=== PATIENT | female | born 1955 | race Caucasian/White ===

== ENCOUNTER 2017-12-01 09:12 | Emergency (ER) | payer BC ==
[2017-12-01 09:23] VITALS: TEMP 98.1
[2017-12-01] MEDS ORDERED: SODIUM CHLORIDE 0.9% 1,000 ML IV STA (09:38)
--- NOTE | 2017-12-01 09:45 | ED ---
General Adult HPI - General Chief complaint: Recheck/Abnormal Lab/Rx Stated complaint: lightheaded, chest tightness Time Seen by Provider: 12/01/17 09:29 Source: patient, RN notes reviewed Mode of arrival: ambulatory Limitations: no limitations - History of Present Illness Initial comments: Patient is a 62-year-old female significant past medical history for whitecoat syndrome, presented to the emergency room today with a chief complaint possible reaction to Synthroid. She states she took 1 pill Friday and later that night began feeling some symptoms of palpitations and tightness in her chest and some nausea. She states she felt very anxious. Patient does admit that she's had similar symptoms in the past. Patient states she is to be on a thyroid medication approximately 30 years ago had similar symptoms. States at that time she used to take Ativan with it so she is unsure if it contracted some of the side effects. She states eventually they figure out she was ALLERGIC to it and told her that her thyroid levels were out that bad so they did not want to treat her. She states she recently was told that she needed this medication. She states she did advised that she had tried in the past but had some reactions. Patient does admit that the symptoms seem to be somewhat improved at this time. She denies any other complaints. Patient denies any recent fever , chills, shortness of breath, back pain, abdominal pain, vomiting, numbness or tingling, dysuria or hematuria, constipation or diarrhea, headaches or visual changes, or any other complaints. - Related Data Home Medications Medication Instructions Recorded Confirmed Levothyroxine Sodium [Synthroid] 100 mcg PO DAILY 12/01/17 12/01/17 Allergies Allergy/AdvReac Type Severity Reaction Status Date / Time acetaminophen Allergy Rash/Hives Verified 12/01/17 10:31 [From Darvocet-N 100] adhesive tape Allergy Rash/Hives Verified 12/01/17 10:31 alprazolam [From Xanax] Allergy Rash/Hives Verified 12/01/17 10:31 Anesthetics - Amide Type Allergy Rash/Hives Verified 12/01/17 10:31 ciprofloxacin [From Cipro] Allergy Rash/Hives Verified 12/01/17 10:31 codeine Allergy Rash/Hives Verified 12/01/17 10:31 dicyclomine [From Bentyl] Allergy Unknown Verified 12/01/17 10:31 estradiol [From Vivelle] Allergy Rash/Hives Verified 12/01/17 10:31 estrogens, conjugated Allergy Rash/Hives Verified 12/01/17 10:31 [From Cenestin] fluoxetine [From Prozac] Allergy Rash/Hives Verified 12/01/17 10:31 latex Allergy Rash/Hives Verified 12/01/17 10:31 levofloxacin [From Levaquin] Allergy Rash/Hives Verified 12/01/17 10:31 levothyroxine sodium Allergy Rash/Hives Verified 12/01/17 10:31 [From Synthroid] lidocaine Allergy Rash/Hives Verified 12/01/17 10:31 morphine Allergy Rash/Hives Verified 12/01/17 10:31 omeprazole [From Prilosec] Allergy Unknown Verified 12/01/17 10:31 ondansetron Allergy Unknown Verified 12/01/17 10:31 [From Zofran (as hydrochloride)] phenazopyridine Allergy Rash/Hives Verified 12/01/17 10:31 propoxyphene Allergy Rash/Hives Verified 12/01/17 10:31 [From Darvocet-N 100] thyroid, pork AdvReac LIGHTHEADED, Verified 12/01/17 10:31 [From [place] Thyroid] BP ISSUES Review of Systems ROS Statement: Those systems with pertinent positive or pertinent negative responses have been documented in the HPI. ROS Other: All systems not noted in ROS Statement are negative. Past Medical History Past Medical History: Thyroid Disorder History of Any Multi-Drug Resistant Organisms: None Reported Past Surgical History: Appendectomy, Hysterectomy, Tubal Ligation Additional Past Surgical History / Comment(s): oral Past Psychological History: Anxiety Smoking Status: Never smoker Past Alcohol Use History: None Reported Past Drug Use History: None Reported General Exam - General Exam Comments Initial Comments: General: The patient is awake and alert, in no distress, and does not appear acutely ill. Eye: Pupils are equal, round and reactive to light, extra-ocular movements are intact. No nystagmus. There is normal conjunctiva bilaterally. No signs of icterus. Ears, nose, mouth and throat: There are moist mucous membranes and no oral lesions. Neck: The neck is supple, there is no tenderness or JVD. Cardiovascular: There is a regular rate and rhythm. No murmur, rub or gallop is appreciated. Respiratory: Lungs are clear to auscultation, respirations are non-labored, breath sounds are equal. No wheezes, stridor, rales, or rhonchi. Gastrointestinal: Soft, non-distended, non-tender abdomen without masses or organomegaly noted. There is no rebound or guarding present. No CVA tenderness. Bowel sounds are unremarkable. Musculoskeletal: Normal ROM, no tenderness. Strength 5/5. Sensation intact. Pulses equal bilaterally 2+. Neurological: A&O x 3. CN II-XII intact, There are no obvious motor or sensory deficits. Coordination appears grossly intact. Speech is normal. Skin: Skin is warm and dry and no rashes or lesions are noted. Psychiatric: Cooperative, appropriate mood & affect, normal judgment. Limitations: no limitations Course Vital Signs 12/01/17 12/01/17 12/01/17 09:16 10:03 11:10 Temperature 98.1 F Pulse Rate 84 74 77 Respiratory 18 20 18 Rate Blood Pressure 212/94 199/92 199/79 O2 Sat by Pulse 99 97 100 Oximetry 12/01/17 11:32 Temperature Pulse Rate 70 Respiratory 18 Rate Blood Pressure 179/84 O2 Sat by Pulse 99 Oximetry - Reevaluation(s) Reevaluation #1: 12/01/17 09:44 EKG performed at 0940: Shows normal sinus rhythm at 76 beats per minute. DC interval 144. QRS 94 QT/QTC 3-4/432. No acute ST changes. Patient's initial blood pressure elevated at triage. She states she does not take any medications for hypertension. She admits that she has or cold syndrome. Her blood pressure will be continued be monitored. Medical Decision Making - Medical Decision Making Patient reexamined at this time shows no signs of distress. Patient states she had similar symptoms in the past when she took [place] Thyroid. She states the symptoms are consistent strength one dose. She states that she has not taken the last 2 days symptoms are improving. At this time patient's labs been reviewed. Case discussed with attending physician Dr. Gottlieb. Patient will be discharged home to follow-up with her family physician. Advised to hold her Synthroid at this time until she follows up. - Lab Data Result diagrams: 12/01/17 09:55 12/01/17 09:55 Lab Results 12/01/17 12/01/17 12/01/17 Range/Units 09:55 09:55 09:55 WBC 5.0 (3.8-10.6) k/uL RBC 5.11 (3.80-5.40) m/uL Hgb 14.1 (11.4-16.0) gm/dL Hct 44.1 (34.0-46.0) % MCV 86.3 (80.0-100.0) fL MCH 27.6 (25.0-35.0) pg MCHC 31.9 (31.0-37.0) g/dL RDW 13.7 (11.5-15.5) % Plt Count 448 (150-450) k/uL Neutrophils % 70 % Lymphocytes % 21 % Monocytes % 6 % Eosinophils % 1 % Basophils % 0 % Neutrophils # 3.5 (1.3-7.7) k/uL Lymphocytes # 1.1 (1.0-4.8) k/uL Monocytes # 0.3 (0-1.0) k/uL Eosinophils # 0.0 (0-0.7) k/uL Basophils # 0.0 (0-0.2) k/uL PT (9.0-12.0) sec INR (<1.2) APTT (22.0-30.0) sec Sodium 146 H (137-145) mmol/L Potassium 4.8 (3.5-5.1) mmol/L Chloride 109 H (98-107) mmol/L Carbon Dioxide 19 L (22-30) mmol/L Anion Gap 18 mmol/L BUN 8 (7-17) mg/dL Creatinine 0.80 (0.52-1.04) mg/dL Est GFR (CKD-EPI)AfAm >90 (>60 ml/min/1.73 sqM) Est GFR (CKD-EPI)NonAf 79 (>60 ml/min/1.73 sqM) Glucose 111 H (74-99) mg/dL Calcium 10.3 H (8.4-10.2) mg/dL Total Bilirubin 0.8 (0.2-1.3) mg/dL AST 31 (14-36) U/L ALT 23 (9-52) U/L Alkaline Phosphatase 93 (38-126) U/L Total Creatine Kinase 81 (30-135) U/L CK-MB (CK-2) 0.5 (0.0-2.4) ng/mL CK-MB (CK-2) Rel Index 0.6 Troponin I <0.012 (0.000-0.034) ng/mL Total Protein 8.9 H (6.3-8.2) g/dL Albumin 4.6 (3.5-5.0) g/dL TSH 13.700 H (0.465-4.680) mIU/L Free T4 0.77 L (0.78-2.19) ng/dL Urine Color Urine Appearance (Clear) Urine pH (5.0-8.0) Ur Specific [place] (1.001-1.035) Urine Protein (Negative) Urine Glucose (UA) (Negative) Urine Ketones (Negative) Urine Blood (Negative) Urine Nitrite (Negative) Urine Bilirubin (Negative) Urine Urobilinogen (<2.0) mg/dL Ur Leukocyte Esterase (Negative) 12/01/17 12/01/17 Range/Units 09:55 11:05 WBC (3.8-10.6) k/uL RBC (3.80-5.40) m/uL Hgb (11.4-16.0) gm/dL Hct (34.0-46.0) % MCV (80.0-100.0) fL MCH (25.0-35.0) pg MCHC (31.0-37.0) g/dL RDW (11.5-15.5) % Plt Count (150-450) k/uL Neutrophils % % Lymphocytes % % Monocytes % % Eosinophils % % Basophils % % Neutrophils # (1.3-7.7) k/uL Lymphocytes # (1.0-4.8) k/uL Monocytes # (0-1.0) k/uL Eosinophils # (0-0.7) k/uL Basophils # (0-0.2) k/uL PT 9.9 (9.0-12.0) sec INR 1.0 (<1.2) APTT 24.3 (22.0-30.0) sec Sodium (137-145) mmol/L Potassium (3.5-5.1) mmol/L Chloride (98-107) mmol/L Carbon Dioxide (22-30) mmol/L Anion Gap mmol/L BUN (7-17) mg/dL Creatinine (0.52-1.04) mg/dL Est GFR (CKD-EPI)AfAm (>60 ml/min/1.73 sqM) Est GFR (CKD-EPI)NonAf (>60 ml/min/1.73 sqM) Glucose (74-99) mg/dL Calcium (8.4-10.2) mg/dL Total Bilirubin (0.2-1.3) mg/dL AST (14-36) U/L ALT (9-52) U/L Alkaline Phosphatase (38-126) U/L Total Creatine Kinase (30-135) U/L CK-MB (CK-2) (0.0-2.4) ng/mL CK-MB (CK-2) Rel Index Troponin I (0.000-0.034) ng/mL Total Protein (6.3-8.2) g/dL Albumin (3.5-5.0) g/dL TSH (0.465-4.680) mIU/L Free T4 (0.78-2.19) ng/dL Urine Color Light Yellow Urine Appearance Clear (Clear) Urine pH 5.5 (5.0-8.0) Ur Specific [place] 1.006 (1.001-1.035) Urine Protein Negative (Negative) Urine Glucose (UA) Negative (Negative) Urine Ketones 1+ H (Negative) Urine Blood Negative (Negative) Urine Nitrite Negative (Negative) Urine Bilirubin Negative (Negative) Urine Urobilinogen <2.0 (<2.0) mg/dL Ur Leukocyte Esterase Negative (Negative) Disposition Clinical Impression: Adverse reaction to drug Disposition: HOME SELF-CARE Condition: Good Instructions: Hypothyroidism (ED) Additional Instructions: Please follow-up with family physician over the next 2 days. Please return here to the emergency room for any symptoms increase or worsen or for any other concerns. Referrals: Arron Correia DO [Primary Care Provider] - 1-2 days Time of Disposition: 12:42
[2017-12-01 10:13] LABS: Basophils % (A) 0 %; Eosinophils % (A) 1 %; HCT 44.1 % (34.0-46.0); HGB 14.1 gm/dL (11.4-16.0); Lymphocytes # (A) 1.1 k/uL (1.0-4.8); Lymphocytes % (A) 21 %; MCH 27.6 pg (25.0-35.0); MCHC 31.9 g/dL (31.0-37.0); MCV 86.3 fL (80.0-100.0); Mean Platelet Volume 7.2; Monocytes # (A) 0.3 k/uL (0-1.0); Monocytes % (A) 6 %; Neutrophils # (A) 3.5 k/uL (1.3-7.7); Neutrophils % (A) 70 %; Platelet Count 448 k/uL (150-450); RBC 5.11 m/uL (3.80-5.40); RDW 13.7 % (11.5-15.5)
--- NOTE | 2017-12-01 10:14 | XR ---
EXAMINATION TYPE: XR chest 2V DATE OF EXAM: 12/01/2017 COMPARISON: NONE TECHNIQUE: PA and lateral views submitted. HISTORY: Pain FINDINGS: The lungs are clear and there is no pneumothorax, pleural effusion, or focal pneumonia. Atheroscler otic change of the aorta. Hypertrophic and degenerative changes spine. Biapical pleural thickening. S ubsegmental changes along the left lung base. IMPRESSION: 1. Nonspecific subsegmental changes along the left lung base. May been the basis of atelectasis. Pepito y infiltrate not excluded follow-up to resolution suggested..
[2017-12-01 10:22] LABS: Partial Thromboplastin Time 24.3 sec (22.0-30.0); Prothrombin Time 9.9 sec (9.0-12.0)
[2017-12-01 10:39] LABS: Creatine Kinase 81 U/L (30-135)
[2017-12-01 10:52] LABS: Creatine Kinase MB 0.5 ng/mL (0.0-2.4); Troponin I <0.012 ng/mL (0.000-0.034)
[2017-12-01 11:15] VITALS: RESP 18
[2017-12-01 11:18] LABS: Appearance,Urine Clear (Clear); Bilirubin,Urine Negative (Negative); Blood,Urine Negative (Negative); Color,Urine Light Yellow; Glucose,Urine (UA) Negative (Negative); Ketones,Urine 1+ (Negative); Leukocyte Esterase,Urine Negative (Negative); Nitrite,Urine Negative (Negative); PH, Urine 5.5 (5.0-8.0); Protein,Urine Negative (Negative); Specific Gravity,Urine 1.006 (1.001-1.035); Urobilinogen,Urine <2.0 mg/dL (<2.0)
[2017-12-01 11:33] VITALS: BP 179/84; PULSE 70
[2017-12-01 11:44] LABS: ALT 23 U/L (9-52); AST 31 U/L (14-36); Albumin 4.6 g/dL (3.5-5.0); Alkaline Phosphatase 93 U/L (38-126); Anion Gap 18 mmol/L; Blood Urea Nitrogen 8 mg/dL (7-17); Calcium 10.3 mg/dL (8.4-10.2); Carbon Dioxide 19 mmol/L (22-30); Chloride 109 mmol/L (98-107); Glucose 111 mg/dL (74-99); Potassium 4.8 mmol/L (3.5-5.1); Sodium 146 mmol/L (137-145); Total Bilirubin 0.8 mg/dL (0.2-1.3); Total Protein 8.9 g/dL (6.3-8.2)
[2017-12-01 12:00] LABS: T4, Free (Free Thyroxine) 0.77 ng/dL (0.78-2.19)
[2017-12-02 13:28] LABS: C. trachomatis,PCR Negative (Neg,Equiv); Chlamydia trachomatis Source Urine; N. gonorrhoeae,PCR Negative (Neg,Equiv); Neisseria Source Urine
== END 2017-12-01 12:58 | disposition home or self-care (01) ==
LOC: EC 09:12
DX: R00.2 Palpitations (principal); R07.89 Other chest pain; R42 Dizziness and giddiness; T38.1X5A Adverse effect of thyroid hormones and substitutes, initial encounter; E07.9 Disorder of thyroid, unspecified; Z88.1 Allergy status to other antibiotic agents; Z88.4 Allergy status to anesthetic agent; Z88.5 Allergy status to narcotic agent; Z88.8 Allergy status to other drugs, medicaments and biological substances; Z91.040 Latex allergy status; Z91.048 Other nonmedicinal substance allergy status; Z79.899 Other long term (current) drug therapy
CPT/HCPCS: 36415; 71046; 80053; 81003; 82550; 82553; 84439; 84443; 84484; 85025; 85610; 85730; 87491; 87591; 93005; 96360; 99285

== ENCOUNTER → 2018-01-05 | Outpatient (CLI) | payer BC | END | disposition home or self-care (01) | LOC: LABWHC1 14:46 | PROVIDERS: ATTEND Internal Medicine Endocrinology, Diabetes & Metabolism | DX: E03.8 Other specified hypothyroidism (principal) | CPT/HCPCS: 36415; 84443 ==

== ENCOUNTER → 2018-03-09 | Outpatient (CLI) | payer BC ==
[2018-03-09 09:01] LABS: Albumin 4.2 g/dL (3.5-5.0); Calcium 9.8 mg/dL (8.4-10.2); Total Bilirubin 0.5 mg/dL (0.2-1.3); Total Protein 7.6 g/dL (6.3-8.2)
[2018-03-09 09:03] LABS: Basophils % (A) 0 %; Eosinophils # (A) 0.1 k/uL (0-0.7); Eosinophils % (A) 3 %; HCT 43.5 % (34.0-46.0); HGB 13.8 gm/dL (11.4-16.0); Lymphocytes # (A) 1.5 k/uL (1.0-4.8); Lymphocytes % (A) 33 %; MCH 27.8 pg (25.0-35.0); MCHC 31.7 g/dL (31.0-37.0); MCV 87.8 fL (80.0-100.0); Mean Platelet Volume 6.6; Monocytes # (A) 0.5 k/uL (0-1.0); Monocytes % (A) 10 %; Neutrophils # (A) 2.4 k/uL (1.3-7.7); Neutrophils % (A) 52 %; Platelet Count 442 k/uL (150-450); RBC 4.96 m/uL (3.80-5.40); RDW 13.8 % (11.5-15.5); WBC 4.7 k/uL (3.8-10.6)
== END | disposition home or self-care (01) ==
LOC: LABWHC1 07:49
PROVIDERS: ATTEND Internal Medicine Endocrinology, Diabetes & Metabolism
DX: Z00.00 Encounter for general adult medical examination without abnormal findings (principal); E66.9 Obesity, unspecified; R03.0 Elevated blood-pressure reading, without diagnosis of hypertension; E03.9 Hypothyroidism, unspecified
CPT/HCPCS: 36415; 80053; 80061; 84443; 85025

== ENCOUNTER → 2018-04-06 | Outpatient (CLI) | payer BC ==
--- NOTE | 2018-04-06 18:42 | BD ---
EXAMINATION TYPE: Axial Bone Density DATE OF EXAM: 04/06/2018 COMPARISON: 02/24/2002 CLINICAL HISTORY: 62-year-old female osteoporosis, postmenopausal screening Height: 53.7 IN Weight: 196 LBS RISK FACTORS HISTORY OF: Active: YES Postmenopausal woman: AGE 46 Take estrogen and/or progesterone medications: NOT NOW How long: AGE 47-50 MEDICATIONS: Thyroid Medications: Which medication: TIROSINT How Lon MONTHS Additional Medications: TIROSINT, EXAM MEASUREMENTS: Bone mineral densitometry was performed using the [employer] System. Bone mineral density as measured about the Lumbar spine is: ----- L1-L4(G/cm2): 1.353 T Score Values are as follows: ----- L2: 1.0 ----- L3: 1.5 ----- L4: 1.9 ----- L1-L4: 1.4 Bone mineral density has: Decreased -11.5% since study of: 02/24/2002 Bone mineral density about the R hip (g/cm2): 0.903 Bone mineral density about the L hip (g/cm2): 0.921 T Score values are as follows: -----R Neck: -1.0 -----L Neck: -0.8 -----R Total: -0.1 -----L Total: 0.1 Bone mineral density has: Decreased -4.6% since study of: 02/24/2002 IMPRESSION: Normal (Values between +1 and -1 indicate normal bone mass). Note that measurements border on osteop enia at the right hip. Consider repeating this study in 5 years or sooner if there is some new clinical indication. NOTE: T-SCORE=SD OF THE YOUNG ADULT MEAN.
--- NOTE | 2018-04-08 13:35 | MM ---
Reason for exam: screening (asymptomatic). Last mammogram was performed 13 years ago. History: Patient is postmenopausal and is nulliparous. Took estrogen for 3 years. Physical Findings: A clinical breast exam by your physician is recommended on an annual basis and results should be correlated with mammographic findings. MG Screening Mammo w CAD Bilateral CC and MLO view(s) were taken. No prior studies available for comparison. The breast tissue is heterogeneously dense. This may lower the sensitivity of mammography. There is no discrete abnormality. ASSESSMENT: Negative, BI-RAD 1 RECOMMENDATION: Routine screening mammogram of both breasts in 1 year.
== END | disposition home or self-care (01) ==
LOC: RADMAMWWP 13:34
PROVIDERS: ATTEND Family Medicine
DX: Z12.31 Encounter for screening mammogram for malignant neoplasm of breast (principal); Z13.820 Encounter for screening for osteoporosis
CPT/HCPCS: 77067; 77080

== ENCOUNTER → 2018-04-22 | Outpatient (CLI) | payer BC | END | disposition home or self-care (01) | LOC: LABWHC1 10:43 | PROVIDERS: ATTEND Internal Medicine Endocrinology, Diabetes & Metabolism | DX: E03.8 Other specified hypothyroidism (principal) | CPT/HCPCS: 36415; 84443 ==

== ENCOUNTER → 2018-06-10 | Outpatient (CLI) | payer BC | LOC: LABWHC1 10:48 | PROVIDERS: ATTEND Internal Medicine Endocrinology, Diabetes & Metabolism | DX: E03.8 Other specified hypothyroidism (principal) | CPT/HCPCS: 36415; 84443 ==

== ENCOUNTER → 2018-07-17 | Outpatient (CLI) | payer BC | END | disposition home or self-care (01) | LOC: LABWHC1 12:55 | PROVIDERS: ATTEND Internal Medicine Endocrinology, Diabetes & Metabolism | DX: E03.8 Other specified hypothyroidism (principal) | CPT/HCPCS: 36415; 84443 ==

== ENCOUNTER → 2018-10-15 | Outpatient (CLI) | payer BC | LOC: LABWHC1 11:55 | PROVIDERS: ATTEND Internal Medicine Endocrinology, Diabetes & Metabolism | DX: E03.8 Other specified hypothyroidism (principal) | CPT/HCPCS: 36415; 84443 ==

== ENCOUNTER → 2019-01-14 | Outpatient (CLI) | payer BC | END | disposition home or self-care (01) | LOC: LABWHC1 10:17 | PROVIDERS: ATTEND Internal Medicine Endocrinology, Diabetes & Metabolism | DX: E03.8 Other specified hypothyroidism (principal) | CPT/HCPCS: 36415; 84443 ==

== ENCOUNTER → 2019-03-29 | Outpatient (CLI) | payer BC | END | disposition home or self-care (01) | LOC: LABWHC1 09:05 | PROVIDERS: ATTEND Internal Medicine Endocrinology, Diabetes & Metabolism | DX: E03.8 Other specified hypothyroidism (principal) | CPT/HCPCS: 36415; 84443 ==

== ENCOUNTER → 2019-07-05 | Outpatient (CLI) | payer MEDICARE, BC | END | disposition home or self-care (01) | LOC: LABWHC1 09:23 | PROVIDERS: ATTEND Internal Medicine Endocrinology, Diabetes & Metabolism | DX: E03.8 Other specified hypothyroidism (principal) | CPT/HCPCS: 36415; 82024; 82533; 84443 ==

== ENCOUNTER → 2019-07-28 | Outpatient (CLI) | payer MEDICARE, BC | LOC: LABWHC1 13:14 | PROVIDERS: ATTEND Internal Medicine Endocrinology, Diabetes & Metabolism | DX: E03.8 Other specified hypothyroidism (principal) | CPT/HCPCS: 36415; 84443 ==

== ENCOUNTER 2019-07-29 01:29 | Emergency (ER) | payer MEDICARE, BC ==
[2019-07-29 01:36] VITALS: BP 175/83; PULSE 92; RESP 18; TEMP 98.2
[2019-07-29] MEDS ORDERED: KETOROLAC 60 MG/2 ML VIAL IM STA (02:12)
--- NOTE | 2019-07-29 02:26 | ED ---
Back Pain HPI - General Chief Complaint: Back Pain/Injury Stated Complaint: Back Pain Time Seen by Provider: 07/29/19 01:55 Source: patient, family Limitations: no limitations - History of Present Illness Initial Comments: 64-year-old female history of thyroid disorder presenting to [facility] department today for chief complaint of right-sided low back pain radiating down right leg. Patient states that she fell a week ago onto her bottom. She states she didnt feel like she needed evaluation at that time and did not have much pain. Today when getting out of bed she had sudden onset of right low back pain that radiated down the right leg. She states she feels likes there is tightness in the right side of back. Denies loss of sensation, loss of bowel/bladder control, fevers, urinary retention, or weakness of the LE b/l. Denies IVDU. Denies cancer. She states the low back pain is better when leaning forward. Denies any other injuries or complaints. Patient states she cannot find a comfortable position. Patient ambulatory pacing room on arrival Afebrile. Extensive allergy list. - Related Data Home Medications Medication Instructions Recorded Confirmed Levothyroxine Sodium [Synthroid] 100 mcg PO DAILY 12/01/17 12/01/17 Allergies Allergy/AdvReac Type Severity Reaction Status Date / Time acetaminophen Allergy Rash/Hives Verified 07/29/19 01:37 [From Darvocet-N 100] adhesive tape Allergy Rash/Hives Verified 07/29/19 01:37 alprazolam [From Xanax] Allergy Rash/Hives Verified 07/29/19 01:37 Anesthetics - Amide Type Allergy Rash/Hives Verified 07/29/19 01:37 ciprofloxacin [From Cipro] Allergy Rash/Hives Verified 07/29/19 01:37 codeine Allergy Rash/Hives Verified 07/29/19 01:37 dicyclomine [From Bentyl] Allergy Unknown Verified 07/29/19 01:37 estradiol [From Vivelle] Allergy Rash/Hives Verified 07/29/19 01:37 estrogens, conjugated Allergy Rash/Hives Verified 07/29/19 01:37 [From Cenestin] fluoxetine [From Prozac] Allergy Rash/Hives Verified 07/29/19 01:37 latex Allergy Rash/Hives Verified 07/29/19 01:37 levofloxacin [From Levaquin] Allergy Rash/Hives Verified 07/29/19 01:37 levothyroxine sodium Allergy Rash/Hives Verified 07/29/19 01:37 [From Synthroid] lidocaine Allergy Rash/Hives Verified 07/29/19 01:37 morphine Allergy Rash/Hives Verified 07/29/19 01:37 omeprazole [From Prilosec] Allergy Unknown Verified 07/29/19 01:37 ondansetron Allergy Unknown Verified 07/29/19 01:37 [From Zofran (as hydrochloride)] phenazopyridine Allergy Rash/Hives Verified 07/29/19 01:37 propoxyphene Allergy Rash/Hives Verified 07/29/19 01:37 [From Darvocet-N 100] thyroid, pork AdvReac LIGHTHEADED, Verified 07/29/19 01:37 [From [place] Thyroid] BP ISSUES Review of Systems ROS Statement: Those systems with pertinent positive or pertinent negative responses have been documented in the HPI. ROS Other: All systems not noted in ROS Statement are negative. Past Medical History Past Medical History: Thyroid Disorder History of Any Multi-Drug Resistant Organisms: None Reported Past Surgical History: Appendectomy, Hysterectomy, Tubal Ligation Additional Past Surgical History / Comment(s): oral Past Psychological History: Anxiety Smoking Status: Never smoker Past Alcohol Use History: None Reported Past Drug Use History: None Reported General Exam - General Exam Comments Initial Comments: General: The patient is awake and alert, in no distress, and does not appear acutely ill. Eye: +3 mm pupils are equal, round and reactive to light, extra-ocular movements are intact. No nystagmus. There is normal conjunctiva bilaterally. No signs of icterus. Cardiovascular: There is a regular rate and rhythm. No murmur, rub or gallop is appreciated. Respiratory: Lungs are clear to auscultation, respirations are non-labored, breath sounds are equal. No wheezes, stridor, rales, or rhonchi. Gastrointestinal: Soft, non-distended, non-tender abdomen without masses or organomegaly noted. There is no rebound or guarding present. Normal rectal tone. Musculoskeletal: Normal inspection of the thoracic and lumbar spine. Right sided paravertebral tenderness .Normal ROM, no tenderness. Strength 5/5 of the LE b/l. +2/5 patellar reflexes. Sensation intact of the LE b/l. Pulses equal bilaterally 2+. Can toe and heel walk. Neurological: A&O x 3. CN II-XII intact grossly, There are no obvious motor or sensory deficits. Coordination appears grossly intact. Speech is normal. Skin: Skin is warm and dry and no rashes or lesions are noted. Psychiatric: Cooperative, appropriate mood & affect, normal judgment. Limitations: no limitations Course Vital Signs 07/29/19 01:35 Temperature 98.2 F Pulse Rate 92 Respiratory 18 Rate Blood Pressure 175/83 O2 Sat by Pulse 96 Oximetry Medical Decision Making - Medical Decision Making 64yo female presenting for back pain. Fall last week. XR (-) for fracture. Pain occurred when lifting leg out of bed. Radicular pain down right leg. No weakness. Normal rectal tone. No sign of cauda equina. Patient ambulatory, can stand on heels/toe. Patient received toradol, tramadol starter pack. Return parameters and outpatient f/u discussed. Verbalized understanding. Discharged appearing well. Discussed case with Dr. Meza Disposition Clinical Impression: Back pain, Radiculopathy Disposition: HOME SELF-CARE Condition: Good Instructions (If sedation given, give patient instructions): Acute Low Back Pain (ED) Additional Instructions: Please use medication as discussed. Please follow-up with family doctor in the next 2 days. Please return to emergency room if the symptoms increase or worsen or for any other concerns-fevers, loss of bowel/bladder control, unable to urinate, loss of sensation of legs or decreased leg strength, recommend outpatient MRI. Is patient prescribed a controlled substance at d/c from ED?: No Referrals: None,Stated [Primary Care Provider] - 1-2 days Melissa Louis DO [Doctor of Osteopathic Medicine] - 1-2 days Time of Disposition: 03:45
--- NOTE | 2019-07-29 02:27 | XR ---
EXAMINATION TYPE: XR lumbar spine 2 or 3V DATE OF EXAM: 07/29/2019 COMPARISON: NONE HISTORY: Fall. Back pain TECHNIQUE: 3 views FINDINGS: There is a mild dextroscoliosis. There is spurring in the endplates throughout the lumbar s pine. There is mild disc space narrowing. Posterior elements are intact. There is no compression frac ture. Sacroiliac joints appear intact. IMPRESSION: Multilevel spondylotic changes and mild dextroscoliosis. No fracture seen.
[2019-07-29] MEDS ORDERED: traMADol 50 MG TAB PO STA (03:07)
[2019-07-29] MEDS ORDERED: traMADol 50 MG STARTER PACK 3 TAB BTL PO STA (03:44)
== END 2019-07-29 04:17 | disposition home or self-care (01) ==
LOC: EC 01:29
DX: M54.16 Radiculopathy, lumbar region (principal); S39.92XA Unspecified injury of lower back, initial encounter; E07.9 Disorder of thyroid, unspecified; Z79.890 Hormone replacement therapy; Z88.8 Allergy status to other drugs, medicaments and biological substances; Z88.6 Allergy status to analgesic agent; Z88.1 Allergy status to other antibiotic agents; Z88.5 Allergy status to narcotic agent; Z88.7 Allergy status to serum and vaccine; Z91.048 Other nonmedicinal substance allergy status; W19.XXXA Unspecified fall, initial encounter
CPT/HCPCS: 72100; 96372; 99283; J1885

== ENCOUNTER 2019-07-31 10:38 | Emergency (ER) | payer MEDICARE, BC ==
[2019-07-31 10:46] VITALS: TEMP 98
[2019-07-31] MEDS ORDERED: traMADol 50 MG TAB PO STA (11:03)
[2019-07-31] MEDS ORDERED: IBUPROFEN 600 MG TAB PO STA (11:03)
--- NOTE | 2019-07-31 11:23 | ED ---
Back Pain HPI - General Source: patient, family, RN notes reviewed Limitations: no limitations <Giancarlo Huitron - Last Filed: 07/31/19 11:30> <Navin Garcia - Last Filed: 07/31/19 13:21> - General Chief Complaint: Back Pain/Injury Stated Complaint: lower back and rt leg pain, rt groin Time Seen by Provider: 07/31/19 10:50 - History of Present Illness Initial Comments: 64-year-old female presents emergency Department chief complaint of low back pain, right leg pain. Patient states this started on Friday into states that she thought she twists her back. Patient did have a fall week prior. Patient x-rays which showed some spondylitic changes otherwise no acute abnormality. Patient denies any bowel bladder incontinence or retention. Denies any abdominal pain. She was given a starter pack of tramadol states it was helping but she is out of her pain meds. Patient scheduled see her PCP and Friday she states that she normal [facility] chiropractor though her chiropractor's office. She states she has some numbness to her right leg states it's only to her thigh. (Giancarlo Huitron) - Related Data Home Medications Medication Instructions Recorded Confirmed Levothyroxine Sodium [Synthroid] 100 mcg PO DAILY 12/01/17 12/01/17 Previous Rx's Medication Instructions Recorded Ibuprofen [Motrin] 600 mg PO Q8HR PRN #20 tab 07/31/19 traMADol HCl [Ultram] 50 mg PO Q6H PRN #12 tab 07/31/19 Allergies Allergy/AdvReac Type Severity Reaction Status Date / Time acetaminophen Allergy Rash/Hives Verified 07/31/19 10:40 [From Darvocet-N 100] adhesive tape Allergy Rash/Hives Verified 07/31/19 10:40 alprazolam [From Xanax] Allergy Rash/Hives Verified 07/31/19 10:40 Anesthetics - Amide Type Allergy Rash/Hives Verified 07/31/19 10:40 ciprofloxacin [From Cipro] Allergy Rash/Hives Verified 07/31/19 10:40 codeine Allergy Rash/Hives Verified 07/31/19 10:40 dicyclomine [From Bentyl] Allergy Unknown Verified 07/31/19 10:40 estradiol [From Vivelle] Allergy Rash/Hives Verified 07/31/19 10:40 estrogens, conjugated Allergy Rash/Hives Verified 07/31/19 10:40 [From Cenestin] fluoxetine [From Prozac] Allergy Rash/Hives Verified 07/31/19 10:40 latex Allergy Rash/Hives Verified 07/31/19 10:40 levofloxacin [From Levaquin] Allergy Rash/Hives Verified 07/31/19 10:40 levothyroxine sodium Allergy Rash/Hives Verified 07/31/19 10:40 [From Synthroid] lidocaine Allergy Rash/Hives Verified 07/31/19 10:40 morphine Allergy Rash/Hives Verified 07/31/19 10:40 omeprazole [From Prilosec] Allergy Unknown Verified 07/31/19 10:40 ondansetron Allergy Unknown Verified 07/31/19 10:40 [From Zofran (as hydrochloride)] phenazopyridine Allergy Rash/Hives Verified 07/31/19 10:40 propoxyphene Allergy Rash/Hives Verified 07/31/19 10:40 [From Darvocet-N 100] thyroid, pork AdvReac LIGHTHEADED, Verified 07/31/19 10:40 [From [place] Thyroid] BP ISSUES Review of Systems ROS Other: All systems not noted in ROS Statement are negative. <Giancarlo Huitron - Last Filed: 07/31/19 11:30> ROS Other: All systems not noted in ROS Statement are negative. <Navin Garcia - Last Filed: 07/31/19 13:21> ROS Statement: Those systems with pertinent positive or pertinent negative responses have been documented in the HPI. Past Medical History Past Medical History: Thyroid Disorder History of Any Multi-Drug Resistant Organisms: None Reported Past Surgical History: Appendectomy, Hysterectomy, Tubal Ligation Additional Past Surgical History / Comment(s): oral Past Psychological History: Anxiety Smoking Status: Never smoker Past Alcohol Use History: None Reported Past Drug Use History: None Reported <Giancarlo Huitron - Last Filed: 07/31/19 11:30> General Exam Limitations: no limitations General appearance: alert, in no apparent distress Head exam: Present: atraumatic, normocephalic, normal inspection Eye exam: Present: normal appearance, PERRL, EOMI. Absent: scleral icterus, conjunctival injection, periorbital swelling ENT exam: Present: normal exam, normal oropharynx, mucous membranes moist Respiratory exam: Present: normal lung sounds bilaterally. Absent: respiratory distress, wheezes, rales, rhonchi, stridor Cardiovascular Exam: Present: regular rate, normal rhythm, normal heart sounds. Absent: systolic murmur, diastolic murmur, rubs, gallop, clicks GI/Abdominal exam: Present: soft, normal bowel sounds. Absent: distended, tenderness, guarding, rebound, rigid Extremities exam: Present: other (Lower extremity strength equal bilaterally neurovascular intact equal color equal warmth) Back exam: Present: normal inspection, full ROM (Mild discomfort with range of motion), tenderness (Right lumbar), paraspinal tenderness. Absent: CVA tenderness (R), CVA tenderness (L), muscle spasm, vertebral tenderness Neurological exam: Present: alert, oriented X3, CN II-XII intact, reflexes normal. Absent: motor sensory deficit <Giancarlo Huitron - Last Filed: 07/31/19 11:30> Course <Navin Garcia - Last Filed: 07/31/19 13:21> Vital Signs 07/31/19 07/31/19 10:42 11:57 Temperature 98 F 98 F Pulse Rate 81 75 Respiratory 18 16 Rate Blood Pressure 176/95 159/74 O2 Sat by Pulse 97 98 Oximetry - Reevaluation(s) Reevaluation #1: 07/31/19 13:21 PA supervision: I did review and evaluate this case. I do agree with the assessment and plan. Patient did present with back pain. Imaging studies reviewed no evidence of acute fractures or subluxations. I do agree with the assessment and plan. (Navin Garcia) Medical Decision Making <Giancarlo Huitron - Last Filed: 07/31/19 11:30> - Medical Decision Making X-rays show some arthritic changes otherwise no acute fracture no acute abnormality. This is consistent with number x-rays performed prior. Patient will be provided prescription for pain meds has follow-up with her PCP and return for any worsening symptoms. Patient offered steroid course patient refuses she is very leery of medications at this time. (Giancarlo Huitron) Disposition Is patient prescribed a controlled substance at d/c from ED?: Yes When asked, does pt state using other controlled substances?: No If prescribed controlled substance>3 days was MAPS reviewed?: Prescribed <3 Days If opioid is for acute pain is fill amount 7 days or less?: Yes If Rx opioid, was Start Talking consent form obtained?: Yes Time of Disposition: 11:31 <Giancarlo Huitron - Last Filed: 07/31/19 11:30> <Navin Garcia - Last Filed: 07/31/19 13:21> Clinical Impression: Lumbar radiculopathy, acute Disposition: HOME SELF-CARE Condition: Stable Instructions (If sedation given, give patient instructions): Acute Low Back Pain (ED), Lumbar Radiculopathy (ED) Additional Instructions: Please return to the Emergency Department if symptoms worsen or any other concerns. Prescriptions: Ibuprofen [Motrin] 600 mg PO Q8HR PRN #20 tab PRN Reason: Pain traMADol HCl [Ultram] 50 mg PO Q6H PRN #12 tab PRN Reason: Pain Referrals: Jarocho Cota [Primary Care Provider] - 1-2 days
--- NOTE | 2019-07-31 11:26 | XR ---
EXAMINATION TYPE: XR Hip RT and AP Pelvis DATE OF EXAM: 07/31/2019 COMPARISON: NONE HISTORY: Pelvic and right hip pain. TECHNIQUE: A single AP view of the pelvis is obtained. Two views of the right hip are obtained. FINDINGS: There is no acute fracture/dislocation evident in the pelvis. The sacroiliac joints appea r symmetric and unremarkable. Mild superior joint space loss in both hips slightly greater on the lef t side with moderate bilateral acetabular spurring is present. The overlying soft tissue appears unre markable. Two views of right hip show no acute fracture or dislocation. No focal lytic or sclerotic lesion see n in the proximal right femur. The overlying soft tissue is unremarkable. IMPRESSION: As above.
[2019-07-31 11:59] VITALS: BP 159/74; PULSE 75; RESP 16
== END 2019-07-31 11:57 | disposition home or self-care (01) ==
LOC: EC 10:38
DX: M54.16 Radiculopathy, lumbar region (principal); E07.9 Disorder of thyroid, unspecified; Z79.890 Hormone replacement therapy; Z88.6 Allergy status to analgesic agent; Z91.048 Other nonmedicinal substance allergy status; Z88.8 Allergy status to other drugs, medicaments and biological substances; Z88.1 Allergy status to other antibiotic agents; Z88.5 Allergy status to narcotic agent; Z91.040 Latex allergy status; Z88.4 Allergy status to anesthetic agent
CPT/HCPCS: 73502; 99283

== ENCOUNTER → 2019-08-30 | Outpatient (CLI) | payer MEDICARE, BC | END | disposition home or self-care (01) | LOC: LABWHC1 09:35 | PROVIDERS: ATTEND Internal Medicine Endocrinology, Diabetes & Metabolism | DX: E03.8 Other specified hypothyroidism (principal) | CPT/HCPCS: 36415; 84443 ==

== ENCOUNTER → 2019-09-30 | Outpatient (CLI) | payer MEDICARE, BC | END | disposition home or self-care (01) | LOC: LABWHC1 09:19 | PROVIDERS: ATTEND Internal Medicine Endocrinology, Diabetes & Metabolism | DX: E03.8 Other specified hypothyroidism (principal) | CPT/HCPCS: 36415; 84443 ==

== ENCOUNTER → 2019-10-29 | Outpatient (CLI) | payer MEDICARE, BC | END | disposition home or self-care (01) | LOC: LABWHC1 15:32 | PROVIDERS: ATTEND Internal Medicine Endocrinology, Diabetes & Metabolism | DX: E03.8 Other specified hypothyroidism (principal) | CPT/HCPCS: 36415; 84443 ==

== ENCOUNTER → 2019-11-24 | Outpatient (CLI) | payer MEDICARE, BC | END | disposition home or self-care (01) | LOC: LABWHC1 09:18 | PROVIDERS: ATTEND Internal Medicine Endocrinology, Diabetes & Metabolism | DX: E03.8 Other specified hypothyroidism (principal) | CPT/HCPCS: 36415; 84443 ==

== ENCOUNTER → 2019-12-30 | Outpatient (CLI) | payer MEDICARE, BC | END | disposition home or self-care (01) | LOC: LABWHC1 08:53 | PROVIDERS: ATTEND Internal Medicine Endocrinology, Diabetes & Metabolism | DX: E03.8 Other specified hypothyroidism (principal) | CPT/HCPCS: 36415; 84443 ==

== ENCOUNTER → 2020-04-24 | Outpatient (CLI) | payer MEDICARE, BC ==
[2020-04-25 01:57] LABS: African American GFR (CKD) 68.5 (60.0-200.0); Albumin 4.2 g/dL (3.80-4.90); Albumin/Globulin Ratio 1.62 (1.60-3.17); Anion Gap 7.8 mmol/L (4.00-12.00); Calcium 9.6 mg/dL (8.7-10.3); Carbon Dioxide 26.2 mmol/L (21.6-31.8); Globulin 2.6 g/dL (1.6-3.3); Non-African American GFR(CKD) 59.1 (60.0-200.0); Potassium 4.7 mmol/L (3.5-5.5); Total Bilirubin 0.3 mg/dL (0.3-1.2); Total Protein 6.8 g/dL (6.2-8.2)
== END | disposition home or self-care (01) ==
LOC: LABWHC1 15:33
PROVIDERS: ATTEND Internal Medicine Endocrinology, Diabetes & Metabolism
DX: E03.8 Other specified hypothyroidism (principal)
CPT/HCPCS: 36415; 80053; 82533; 84443

== ENCOUNTER → 2020-06-15 | Outpatient (CLI) | payer MEDICARE, BC ==
[2020-06-15 21:31] LABS: African American GFR (CKD) 77.2 (60.0-200.0); Albumin 4.1 g/dL (3.80-4.90); Albumin/Globulin Ratio 1.52 (1.60-3.17); Anion Gap 9.2 mmol/L (4.00-12.00); BUN/Creat Ratio 15.56 Ratio (12.00-20.00); Calcium 9.8 mg/dL (8.7-10.3); Carbon Dioxide 24.8 mmol/L (21.6-31.8); Globulin 2.7 g/dL (1.6-3.3); Non-African American GFR(CKD) 66.6 (60.0-200.0); Potassium 4.8 mmol/L (3.5-5.5); Total Bilirubin 0.4 mg/dL (0.2-1.2); Total Protein 6.8 g/dL (6.2-8.2)
== END | disposition home or self-care (01) ==
LOC: LABWHC1 09:59
PROVIDERS: ATTEND Internal Medicine Endocrinology, Diabetes & Metabolism
DX: E03.8 Other specified hypothyroidism (principal)
CPT/HCPCS: 36415; 80053; 82533; 84443

== ENCOUNTER → 2020-12-18 | Outpatient (CLI) | payer MEDICARE, BC | END | disposition home or self-care (01) | LOC: LABWHC1 09:10 | PROVIDERS: ATTEND Internal Medicine Endocrinology, Diabetes & Metabolism | DX: E03.8 Other specified hypothyroidism (principal) | CPT/HCPCS: 36415; 84443 ==

== ENCOUNTER → 2021-07-19 | Outpatient (CLI) | payer MEDICARE, BC | END | disposition home or self-care (01) | LOC: LABWHC1 09:01 | PROVIDERS: ATTEND Internal Medicine Endocrinology, Diabetes & Metabolism | DX: E03.8 Other specified hypothyroidism (principal) | CPT/HCPCS: 36415; 84443 ==

== ENCOUNTER → 2022-07-08 | Outpatient (CLI) | payer MEDICARE, BC | END | disposition home or self-care (01) | LOC: LABWHC1 08:34 | PROVIDERS: ATTEND Internal Medicine Endocrinology, Diabetes & Metabolism | DX: E03.8 Other specified hypothyroidism (principal) | CPT/HCPCS: 36415; 84443 ==

== ENCOUNTER → 2023-01-02 | Outpatient (CLI) | payer MEDICARE, BC | END | disposition home or self-care (01) | LOC: LABWHC1 08:42 | PROVIDERS: ATTEND Internal Medicine Endocrinology, Diabetes & Metabolism | DX: E03.8 Other specified hypothyroidism (principal) | CPT/HCPCS: 36415; 84443 ==

== ENCOUNTER → 2023-07-01 | Outpatient (CLI) | payer MEDICARE, BC | END | disposition home or self-care (01) | LOC: LABWHC1 09:45 | PROVIDERS: ATTEND Internal Medicine Endocrinology, Diabetes & Metabolism | DX: E03.8 Other specified hypothyroidism (principal) | CPT/HCPCS: 36415; 84443 ==

== ENCOUNTER → 2023-12-01 | Outpatient (CLI) | payer MEDICARE, BC | END | disposition home or self-care (01) | LOC: LABWHC1 10:53 | PROVIDERS: ATTEND Internal Medicine Endocrinology, Diabetes & Metabolism | DX: E03.8 Other specified hypothyroidism (principal) | CPT/HCPCS: 36415; 84443 ==

== ENCOUNTER → 2024-06-02 | Outpatient (CLI) | payer MEDICARE, BC | END | disposition home or self-care (01) | LOC: LABWHC1 09:11 | PROVIDERS: ATTEND Internal Medicine Endocrinology, Diabetes & Metabolism | DX: E03.8 Other specified hypothyroidism (principal) | CPT/HCPCS: 36415; 84443 ==

== ENCOUNTER → 2024-12-13 | Outpatient (CLI) | payer MEDICARE, BC | END | disposition home or self-care (01) | LOC: LABWHC1 08:18 | PROVIDERS: ATTEND Internal Medicine Endocrinology, Diabetes & Metabolism | DX: E03.8 Other specified hypothyroidism (principal) | CPT/HCPCS: 36415; 84443 ==

== ENCOUNTER → 2025-03-29 | Outpatient (CLI) | payer MEDICARE, BC | END | disposition home or self-care (01) | LOC: LABWHC1 09:11 | PROVIDERS: ATTEND Internal Medicine Endocrinology, Diabetes & Metabolism | DX: E03.8 Other specified hypothyroidism (principal) | CPT/HCPCS: 36415; 84443 ==